=== PATIENT | male | born 1980 | race Caucasian/White ===

== ENCOUNTER 2022-07-15 13:45 | Outpatient (RCR) | payer OTHER, SELFPAY ==
--- NOTE | 2022-07-10 08:54 | PT.OPE ---
PT [facility] Outpatient Eval PT [facility] Outpatient Eval Start: 07/09/22 13:01 Freq: Status: Active Protocol: Document 07/09/22 13:01 [facility] (Rec: 07/09/22 13:06 [facility] Desktop) E-signed By Liang Stokes, PT, ATC Physical Therapy Outpatient Evaluation Insurance Information Insurance Information/Comments Medical Diagnosis M75.52 Bursitis of L shoulder M75.80 Other shoulder lesions Treating Diagnosis L shoulder pain Referring RUTH Walker Subjective Subjective L shoulder pain with active mobility. Onset insidious, has bothered him for nearly 6 months. MRI did not identify a tear in the RC tendons or the labrum. 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 Normal soft tissue stretch end feel. Strength 5/5 all patterns R and L shoulder Palpation Tender within subacromial joint of the L shoulder. Also over subscapularis muscle- tendon within axilla. Posture Good muscle development throughout upper shoulders and pectoralis muscles. Less obvious definition in the mid back. Head forward and rounded shoulder bilaterally. Other/Pertinent Objective Empty can:positive click > soreness Lift off : negative [place]: [id number] Neer: negative [place]: positve Assessment Assessment/Impression Collin is a pleasant 42 year- old male experiencing activity induced L shoulder pain x 5 months. No report of injury or cause for symptoms which have been gradually worsening. PT examination supports findings of the MRI-AC joint arthrosis, Supraspinatus and subscapularis tendinosis and GH bursitis. Clearly impingement syndrome exists and is contributed to by his forward shoulder posture and tight anterior muscles of the chest and upper arms. A PT program should be initiated and include anterior shoulder stretching, posterior shoulder and intrascapular strengthening, thoracic extension mobilization and both Ibuprofen and ice usage. Should symptoms continue after a couple weeks of therapy, either oral steroid or shoulder injection of cortisone could be considered. Primary Functional Limitations Reaching Dressing Workouts Lifting and holding his five year old child Plan of Care Rehabilitation Potential Good Physical Therapy Goals 1.Able to reach to his side to don his coat with L shoulder pain 2/10 or less. 2.Able to lift and hold his 5 year old child without L shoulder pain >2/10. 3.To demonstrate proper posture maintenance in standing-increased thoracic ext and retracted shoulders. 4.Lessen audible clicking in the L shoulder with rotation motions. Coordination/Communication With Referral Source Frequency/Duration 1-2x per week 6-12 weeks Patient Will Be Discharged From Therapy Independent w/HEP, Independently Progressing Evaluation Billing Untimed Code Treatment Minutes 40 PT Eval No Charge No Complexity Low Certification Information Physician Comment/Change : Physician NPI Number #
== END 2022-10-24 10:59 | disposition home or self-care (01) ==
PROVIDERS: PCP Emergency Medicine; Visit Provider Physician Assistant Surgical
DX: M75.80 Other shoulder lesions, unspecified shoulder (principal); M75.52 Bursitis of left shoulder; M25.512 Pain in left shoulder; Z51.89 Encounter for other specified aftercare
CPT/HCPCS: 97110; 97161